=== PATIENT | male | born 1970 | race Two or more races ===

== ENCOUNTER 2025-07-28 01:47 | Emergency (ER) | payer OTHER ==
[~2025-07-28] VITALS: Ht 172.7 cm; Wt 113.4 kg
[2025-07-28] MEDS ORDERED: METFORMIN HCL500 M3 (03:08)
[2025-07-28] MEDS ORDERED: ASPIRIN 325 MG TABLET PO ONE (03:30)
[2025-07-28] MEDS ORDERED: NITROGLYCERIN 0.4 MG TAB.SUBL SL SCH (03:30)
[2025-07-28 03:47] LABS: BASO % 0.3 % (0.1-1.2); EOS # 0.10 (0.04-0.54); EOS % 1.0 % (0.7-7.0); LYMPH # 1.60 (1.18-3.74); LYMPH % 16.5 % (19.3-53.1); MEAN PLATELET VOLUME 9.30 fl (9.4-12.4); MONO # 0.67 (0.24-0.82); MONO % 6.9 % (4.7-12.5); NEUT # 7.24 (1.56-6.13); NEUT % 75.0 % (34.0-71.1); RED CELL DISTRIBUTION WIDTH 13.4 % (11.6-14.4)
[2025-07-28 04:08] LABS: ALT/SGPT 32.0 U/L (12-78); AST/SGOT 17.0 U/L (15-37); BILIRUBIN TOTAL 0.41 mg/dL (0.3-1.2); BUN CREA RATIO 17.0 (7.0-25.0); CREATININE SERUM 0.92 mg/dL (0.70-1.30); GFR 85.41; GLOBULINA 3.3 G/DL (2.4-3.5); GLUCOSE FASTING 127.0 mg/dL (65-100); OSMOLALITY SERUM 280.0 MOSM/KG (275-295)
[2025-07-28] MEDS ORDERED: KETOROLAC TROMETHAMINE 30 MG VIAL ONE (10:59)
[2025-07-28] MEDS ORDERED: KETOROLAC TROMETHAMINE 30 MG VIAL IV ONE (11:00)
[2025-07-28] MEDS ORDERED: LIDOCAINE HCL 1% 10ML VIAL ONE (13:42)
[2025-07-28] MEDS ORDERED: CEFTRIAXONE SODIUM 1,000 MG VIAL ONE (13:42)
[2025-07-28] MEDS ORDERED: CEFTRIAXONE SODIUM 1,000 MG VIAL IM ONE (13:45)
== END 2025-07-28 14:45 | disposition left against medical advice (07) ==
LOC: ER 01:47
PROVIDERS: Preventive Medicine Public Health & General Preventive Medicine
DX: R10.11 Right upper quadrant pain (principal); K80.18 Calculus of gallbladder with other cholecystitis without obstruction; E11.9 Type 2 diabetes mellitus without complications; Z79.84 Long term (current) use of oral hypoglycemic drugs